=== PATIENT | male | born 1940 | race Caucasian/White ===

== ENCOUNTER 2016-11-03 09:05 | Inpatient (IN) | payer MEDICARE ==
[2016-11-03] VITALS (7 sets, daily range): BP systolic 132–190; BP diastolic 68–100
[~2016-11-03] VITALS: Ht 167.6 cm; Wt 77.8 kg
--- NOTE | ~2016-11-03 | WRIGHTHP ---
[place], [place] PATIENT HISTORY AND PHYSICAL EXAM NAME: DMITRY TORRE [facility] #: [id number] UNIT #: [id number] ROOM: 510 DOCTOR: NATO NELSON DO BIRTHDATE: [birth year] DOS: 11/03/2016 PRIMARY CARE PHYSICIAN: Dr. Tomy Albright. The patient was seen and evaluated with the resident on 11/03/2016. Please see the resident's note for further details. ASSESSMENT: 1. Acute ischemic cerebrovascular accident of the right frontoparietal region. 2. 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 3. Acute rhabdomyolysis secondary to fall. 4. Dehydration. 5. Acute renal failure. 6. Leukocytosis. 7. Diabetes mellitus type 2. 8. Hypertension. 9. Hyperlipidemia. 10. Coronary artery disease with history of coronary artery bypass graft in the past. 11. History of prostate cancer. 12. History of known carotid artery stenosis. PLAN: An MRI and MRA of the brain will be ordered to further evaluate the stroke. Physical therapy has been consulted. An echocardiogram has been ordered. Continue aspirin, continue statin. A swallow evaluation has been ordered. NATO NELSON DO CM:HISPHYS:PATIENT HISTORY AND PHYSICAL EXAMINATION 35 [id number] NATO NELSON DO 11/03/[id number] interface
[~2016-11-03 09:05] MED LIST: ASPIRIN81 M1 PO; ATORVASTATIN CA20 M1 PO; CEPHALEXIN500 M1 PO; CITALOPRAM HYDR20 MG PO; GLYBURIDE5 MG PO; LISINOPRIL10 M1 PO; METFORMIN HCL500 MG PO; METOPROLOL SUCC25 M2 PO; NORCO 5-325 TA1 EACH PO
[2016-11-03 09:52] LABS: BASO % 0.1 % (0.0-1.0); HEMATOCRIT 43.3 % (42.0-52.0); HEMOGLOBIN 14.5 g/dl (14.0-18.0); IG # 0.1 10*3/uL (0.0-0.1); LYMPH # 0.5 10*3/uL (1.3-4.4); LYMPH % 2.7 % (27.0-41.0); MEAN CELL VOLUME 98.6 fl (80.0-94.0); MEAN CORPUSCULAR HGB CONC 33.5 g/dl (33.0-37.0); MEAN PLATELET VOLUME 10.6 fl (9.6-12.3); MONO # 1.4 10*3/uL (0.1-1.0); MONO % 7.5 % (3.0-9.0); NEUT # 16.7 10*3/uL (2.3-7.9); PLATELET COUNT AUTOMATED 236 10*3/uL (130-400); RED BLOOD COUNT 4.39 10*6/uL (4.50-5.90); RED CELL DISTRI WIDTH 13.6 % (0-14.5); WHITE BLOOD COUNT 18.8 10*3/uL (4.8-10.8)
[2016-11-03 10:21] LABS: ALBUMIN 3.5 gm/dl (3.1-4.5); MAGNESIUM 1.4 mg/dL (1.5-2.1); POTASSIUM 5.2 mmol/L (3.5-5.1); TROPONIN I 0.027 ng/ml (<0.5)
[2016-11-03 10:23] LABS: CKMB 12.2 ng/ml (0.5-3.6)
[2016-11-03 11:07] LABS: BILIRUBIN 2+ (NEGATIVE); BLOOD 3+ (NEGATIVE); CLARITY CLEAR (CLEAR); COLOR YELLOW (YELLOW); GLUCOSE 2+ (NEGATIVE); KETONE 2+ (NEGATIVE); LEUKO ESTERASE NEGATIVE (NEGATIVE); NITRITE NEGATIVE (NEGATIVE); PH 5.5 (5.0-9.0); PROTEIN 3+ (NEGATIVE); SPECIFIC GRAVITY >= 1.030 (1.005-1.030); UROBILINOGEN 0.2 E.U./dl (0.2-1.0)
[2016-11-03 11:16] LABS: BACTERIA TRACE; HYALINE CAST 21-30; URINE REFLEX COMMENT YES (NO)
[2016-11-03 11:47] LABS: LA>2 REFLEX 2 HR DRAW NOW
[2016-11-03] MEDS ORDERED: SODIUM POL PO (13:19)
[2016-11-03 18:27] LABS: TROPONIN I 0.035 ng/ml (<0.5)
[2016-11-03 18:33] LABS: CKMB 10.4 ng/ml (0.5-3.6)
[2016-11-04] VITALS: BP 149/86
[2016-11-04 00:53] LABS: TROPONIN I 0.033 ng/ml (<0.5)
[2016-11-04 00:59] LABS: CKMB 8.2 ng/ml (0.5-3.6)
[2016-11-04 06:21] LABS: BASO % 0.2 % (0.0-1.0); EOS # 0.1 10*3/uL (0.0-0.4); EOS % 0.6 % (1.0-4.0); HEMATOCRIT 37.8 % (42.0-52.0); HEMOGLOBIN 12.7 g/dl (14.0-18.0); IG # 0.1 10*3/uL (0.0-0.1); LYMPH # 0.9 10*3/uL (1.3-4.4); LYMPH % 9.5 % (27.0-41.0); MEAN CELL VOLUME 98.4 fl (80.0-94.0); MEAN CORPUSCULAR HGB 33.1 pg (27.0-31.0); MEAN CORPUSCULAR HGB CONC 33.6 g/dl (33.0-37.0); MEAN PLATELET VOLUME 10.6 fl (9.6-12.3); MONO # 0.9 10*3/uL (0.1-1.0); MONO % 9.3 % (3.0-9.0); NEUT # 7.7 10*3/uL (2.3-7.9); NEUT % 79.8 % (47.0-73.0); RED BLOOD COUNT 3.84 10*6/uL (4.50-5.90); RED CELL DISTRI WIDTH 13.9 % (0-14.5); TROPONIN I 0.033 ng/ml (<0.5); WHITE BLOOD COUNT 9.7 10*3/uL (4.8-10.8)
[2016-11-04 06:42] LABS: INTERNATIONAL NORM RATIO 0.9 (2.0-3.5)
[2016-11-04 06:45] LABS: BUN 20 mg/dl (7-24); CARBON DIOXIDE 26 mmol/L (21-32); CHLORIDE 105 mmol/L (98-107); CHOLESTEROL 93 mg/dL (<200); EST GLOM FILT AFRICAN AMERICAN > 60 ml/min; FREE T4 1.33 ng/dl (0.76-1.46); GLUCOSE 107 mg/dL (65-99); HDL CHOLESTEROL 58 mg/dl (40-60); LDL CHOLESTEROL 12 mg/dL (9-159); MAGNESIUM 1.9 mg/dL (1.5-2.1); SODIUM 140 mmol/L (136-145); TRIGLYCERIDES 114 mg/dl (<150); VLDL CHOLESTEROL 23 mg/dL (6-40)
[2016-11-04 07:11] LABS: PLATELET COUNT AUTOMATED 153 10*3/uL (130-400)
[2016-11-04 07:31] LABS: FOLIC ACID 6.49 ng/mL (>5.38)
[2016-11-04 08:00] VITALS: BP 151/80
== END 2016-11-04 10:28 | disposition short-term general hospital (02) | DRG 64 ==
LOC: ED 09:05 → 5E 10:40 → EDHOLD 10:40 → 4E 11:17 → 5E 21:27
PROVIDERS: Internal Medicine
DX: I63.9 Cerebral infarction, unspecified (principal); N17.0 Acute kidney failure with tubular necrosis; E87.2 Acidosis; R65.10 Systemic inflammatory response syndrome (SIRS) of non-infectious origin without acute organ dysfunction; E11.65 Type 2 diabetes mellitus with hyperglycemia; E11.22 Type 2 diabetes mellitus with diabetic chronic kidney disease; N18.3 Chronic kidney disease, stage 3 (moderate); E83.42 Hypomagnesemia; E87.5 Hyperkalemia; T79.6XXA Traumatic ischemia of muscle, initial encounter; I16.0 Hypertensive urgency; D72.825 Bandemia; R31.9 Hematuria, unspecified; R82.4 Acetonuria; I12.9 Hypertensive chronic kidney disease with stage 1 through stage 4 chronic kidney disease, or unspecified chronic kidney disease; E78.5 Hyperlipidemia, unspecified; Z95.1 Presence of aortocoronary bypass graft